=== PATIENT | female | born 1960 | race Asian ===

== ENCOUNTER → 2016-12-05 | Outpatient (CLI) | payer BC | LOC: RAD 08:49 | DX: Z12.31 Encounter for screening mammogram for malignant neoplasm of breast (principal) ==

== ENCOUNTER → 2019-03-02 | Outpatient (CLI) | payer BC | LOC: RAD 12:10 | DX: Z12.31 Encounter for screening mammogram for malignant neoplasm of breast (principal); S39.92XA Unspecified injury of lower back, initial encounter; X58.XXXA Exposure to other specified factors, initial encounter; Y93.89 Activity, other specified; Y92.89 Other specified places as the place of occurrence of the external cause; Y99.8 Other external cause status ==